=== PATIENT | female | born 1970 ===

== ENCOUNTER 2017-08-11 19:24 | Emergency (ER) | payer SELFPAY ==
[2017-08-11 19:44] VITALS: BP 141/85; RESP 20; TEMP 98.3
[2017-08-11] MEDS ORDERED: DiphenhydrAMINE 50 mg/ml Inj IVP STA (20:19)
--- NOTE | 2017-08-11 20:27 | C.PDOC ---
History Of Present Illness 46 y/o female presents to ED with complaints of rash to bilateral lower extremities since yesterday. Patient describes rash as "burning" with minimal itching and reports today has extended to upper extremities and lower abdomen. Patient states she was once told by PMD she had high allergy levels based on lab work done. Patient denies known allergens, fever, prior history of same rash or any other complaints at this time. Time Seen by Provider: 08/11/17 19:56 Chief Complaint (Nursing): Abnormal Skin Integrity History Per: Patient History/Exam Limitations: no limitations Onset/Duration Of Symptoms: Days Current Symptoms Are (Timing): Still Present Quality Of Symptoms: Itching Past Medical History Vital Signs: Last Vital Signs Temp 98.3 F 08/11/17 19:41 Pulse 74 08/11/17 22:53 Resp 20 08/11/17 22:53 BP 141/85 08/11/17 19:41 Pulse Ox 99 08/12/17 00:01 - Medical History PMH: HTN, Hypothyroidism Denies: Chronic Kidney Disease - [facility] Procedures LAPAROSCOP REMOVE OVARIES/TUBES (02/19/15) LAPAROSCOPIC ROBOTIC ASSISTED PROCEDURE (02/19/15) LAPAROSCOPIC TOTAL ABDOMINAL HYSTERECTOMY (02/19/15) SIMP EXC LYMPH STRUC NEC (02/19/15) Family History: States: Unknown Family Hx - Social History Hx Alcohol Use: No Hx Substance Use: No - Immunization History Hx Tetanus Toxoid Vaccination: Yes Hx Influenza Vaccination: No Hx Pneumococcal Vaccination: No Review Of Systems Constitutional: Negative for: Fever, Chills Respiratory: Negative for: Cough, Shortness of Breath Gastrointestinal: Negative for: Nausea, Vomiting Skin: Positive for: Rash. Negative for: Lesions Neurological: Negative for: Weakness, Numbness Physical Exam - Physical Exam Appears: Non-toxic, No Acute Distress Skin: Warm, Dry, Rash (Petechial rash to bilateral thigh, bilateral upper arms and low abdomen (-)hives (-)vesicular lesions) Head: Atraumatic, Normacephalic Eye(s): bilateral: Normal Inspection, PERRL, EOMI Oral Mucosa: Moist Tongue: Normal Appearing, No Swelling Lips: Normal Appearing, No Swelling, No Lesions, No Erythema Throat: Normal, No Erythema, No Exudate, No Drooling Neck: Supple Chest: Symmetrical Cardiovascular: Rhythm Regular Respiratory: Normal Breath Sounds, No Accessory Muscle Use, No Rales, No Rhonchi , No Wheezing Extremity: Normal ROM, Capillary Refill (<2 seconds) Neurological/Psych: Oriented x3, Normal Speech Gait: Steady ED Course And Treatment - Laboratory Results Result Diagrams: 08/11/17 20:44 08/11/17 20:44 O2 Sat by Pulse Oximetry: 99 (RA) Pulse Ox Interpretation: Normal Progress Note: Pt with Petechial rash- labs ordered and reviewed , results d/w pt. Benadryl and solumedrol IV was ordered. Pt in no acute distress, labs wnl, K + replaced, no platelets abnormalities. Pt advised to follow up with PMD in clinic. Return precautions dicussed and pt does agree with plan Disposition Counseled Patient/Family Regarding: Diagnosis, Need For Followup, Rx Given - Disposition Disposition: HOME/ ROUTINE Disposition Time: 22:31 Condition: STABLE Additional Instructions: Please follow up with PMD Return to ER if moderate pain to extremities, fever, peeling of skin , swelling to lips or worse Prescriptions: DiphenhydrAMINE [Benadryl] 25 mg PO QID #20 cap predniSONE [Prednisone] 40 mg PO DAILY #8 tab Instructions: Acute Rash (ED) Forms: [employer] ([place]) - Clinical Impression Clinical Impression: Rash and nonspecific skin eruption - PA / [employer] / Resident Statement MD/DO has reviewed & agrees with the documentation as recorded. - Scribe Statement The provider has reviewed the documentation as recorded by the Nicole Anderson All medical record entries made by the Nicole were at my direction and personally dictated by me. I have reviewed the chart and agree that the record accurately reflects my personal performance of the history, physical exam, medical decision making, and the department course for this patient. I have also personally directed, reviewed, and agree with the discharge instructions and disposition.
[2017-08-11] MEDS ORDERED: DiphenhydrAMINE 50 mg/ml Inj ONE (20:38)
[2017-08-11 20:50] LABS: BASO # 0.1 K/uL (0.0-0.2); BASO % 0.9 % (0.0-2.0); EOS # 0.1 K/uL (0.0-0.7); EOS % 0.6 % (0.0-4.0); HEMATOCRIT 37.6 % (34.0-47.0); LYMPH % 24.4 % (20.0-40.0); MEAN CELL VOLUME 84.7 fL (81.0-99.0); MEAN CORPUSCULAR HGB CONC 33.1 g/dL (33.0-37.0); MEAN PLATELET VOLUME 8.9 fL (7.2-11.7); MONO # 0.9 K/uL (0.0-0.8); MONO % 7.1 % (0.0-10.0); RED CELL DISTRIBUTION WIDTH 13.7 % (11.5-14.5); WHITE BLOOD COUNT 12.3 K/uL (4.8-10.8)
[2017-08-11 21:07] LABS: ALB/GLOB RATIO 1.1 (1.0-2.1); ALKALINE PHOSPHATASE 116 U/L (38-126); ALT/SGPT 45 U/L (9-52); AST/SGOT 28 U/L (14-36); BILIRUBIN,TOTAL 0.7 mg/dL (0.2-1.3); BLOOD UREA NITROGEN 22 mg/dL (7-17); CALCIUM 8.5 mg/dl (8.6-10.4); CARBON DIOXIDE 30 mmol/L (22-30); CHLORIDE 96 mmol/L (98-107); GFR AFRICAN-AMERICAN > 60; GLUCOSE,RANDOM 104 mg/dL (65-105); POTASSIUM 3.2 mmol/L (3.6-5.2); SODIUM 137 mmol/L (132-148); TOTAL PROTEIN 7.7 g/dL (6.3-8.3)
[2017-08-11] MEDS ORDERED: Potassium Chloride 20 mEq ER Tab PO STA (21:59)
[2017-08-11] MEDS ORDERED: Potassium Chloride 20 mEq ER Tab PO ONE (22:06)
[2017-08-11 22:53] VITALS: PULSE 74
[2017-08-12 00:01] VITALS: O2SAT 99
== END 2017-08-11 22:54 | disposition home or self-care (01) ==
LOC: C.ER 19:24
DX: R21 Rash and other nonspecific skin eruption (principal); E87.6 Hypokalemia
CPT/HCPCS: 80053; 85025; 96365; 96375; 99284; J1200; J2930

== ENCOUNTER 2017-09-26 15:43 | Emergency (ER) | payer OTHER ==
[2017-09-26 15:54] VITALS: BMI 31.4
[2017-09-26 16:02] VITALS: O2SAT 100
[2017-09-26] MEDS ORDERED: Lactated Ringer's 1,000 ML IVB STA (16:28)
[2017-09-26] MEDS ORDERED: Lactated Ringer's 1,000 ML ONE (16:47)
[2017-09-26 16:50] LABS: BASO # 0.2 K/uL (0.0-0.2); EOS % 0.5 % (0.0-4.0); HEMOGLOBIN 13.3 g/dL (11.0-16.0); LYMPH # 2.3 K/uL (1.0-4.3); LYMPH % 29.8 % (20.0-40.0); MEAN CELL VOLUME 85.1 fL (81.0-99.0); MEAN CORPUSCULAR HEMOGLOBIN 28.9 pg (27.0-31.0); MEAN CORPUSCULAR HGB CONC 33.9 g/dL (33.0-37.0); MEAN PLATELET VOLUME 8.7 fL (7.2-11.7); MONO # 0.6 K/uL (0.0-0.8); MONO % 8.1 % (0.0-10.0); NEUT # 4.6 K/uL (1.8-7.0); NEUT % 59.6 % (50.0-75.0); RBC 4.6 Mil/uL (3.80-5.20); RED CELL DISTRIBUTION WIDTH 13.9 % (11.5-14.5); WHITE BLOOD COUNT 7.7 K/uL (4.8-10.8)
[2017-09-26 17:00] LABS: ALBUMIN 3.9 g/dL (3.5-5.0); ALT/SGPT 47 U/L (9-52); AST/SGOT 32 U/L (14-36); BLOOD UREA NITROGEN 19 mg/dL (7-17); CALCIUM 8.6 mg/dl (8.6-10.4); GFR AFRICAN-AMERICAN > 60; GFR NON-AFRICAN AMERICAN 59; MAGNESIUM 1.8 mg/dL (1.6-2.3)
[2017-09-26 17:16] LABS: FREE T4 1.27 ng/dL (0.78-2.19)
--- NOTE | 2017-09-26 17:51 | C.PDOC ---
Time Seen by Provider: 09/26/17 16:19 Chief Complaint (Nursing): Dizziness/Lightheaded History Per: Patient Onset/Duration Of Symptoms: Days (3) Current Symptoms Are (Timing): Still Present Activity At Onset Of Symptoms: Walking Seizure Or Post-ictal Symptoms: None Possible Causative Factor(s): Lightheaded W/Exertion Fall Associated With With Symptoms: No Severity: Moderate Additional History Per: Prior Records - Symptoms Of CVA Recent Head Trauma: No Past Medical History Reviewed: Historical Data, Nursing Documentation, Vital Signs Vital Signs: Last Vital Signs Temp 98.3 F 09/26/17 15:58 Pulse 70 09/26/17 15:58 Resp 18 09/26/17 15:58 BP Pulse Ox 100 09/26/17 17:51 - Medical History PMH: HTN, Hypothyroidism Other Surgeries: Hysterectomy - [facility] Procedures LAPAROSCOP REMOVE OVARIES/TUBES (02/19/15) LAPAROSCOPIC ROBOTIC ASSISTED PROCEDURE (02/19/15) LAPAROSCOPIC TOTAL ABDOMINAL HYSTERECTOMY (02/19/15) SIMP EXC LYMPH STRUC NEC (02/19/15) Family History: States: Unknown Family Hx - Social History Hx Tobacco Use: No Hx Alcohol Use: No Hx Substance Use: No - Immunization History Hx Tetanus Toxoid Vaccination: Yes Hx Influenza Vaccination: No Hx Pneumococcal Vaccination: No Review Of Systems Except As Marked, All Systems Reviewed And Found Negative. Constitutional: Negative for: Fever, Weakness Cardiovascular: Negative for: Chest Pain Respiratory: Negative for: Shortness of Breath Gastrointestinal: Negative for: Vomiting, Abdominal Pain Genitourinary: Negative for: Dysuria Musculoskeletal: Negative for: Neck Pain Skin: Negative for: Rash Neurological: Negative for: Weakness, Numbness, Seizures, Altered Mental Status Physical Exam - Physical Exam Appears: Non-toxic, No Acute Distress Skin: Normal Color, Warm, Dry, No Rash Head: Atraumatic, Normacephalic Eye(s): bilateral: Normal Inspection, PERRL, EOMI Neck: Normal ROM, Supple Cardiovascular: Rhythm Regular Respiratory: Normal Breath Sounds, No Accessory Muscle Use Gastrointestinal/Abdominal: Soft, No Tenderness Back: No CVA Tenderness Extremity: Normal ROM, No Pedal Edema, No Calf Tenderness Neurological/Psych: Oriented x3, Normal Speech, Normal Cognition, No Cerebellar Signs, Normal Motor, Normal Sensation ED Course And Treatment - Laboratory Results Result Diagrams: 09/26/17 16:45 09/26/17 16:45 Lab Interpretation: No Acute Changes O2 Sat by Pulse Oximetry: 100 Pulse Ox Interpretation: Normal Progress Note: Pt is now asymptomatic. Ambulating without any dizziness. Reassessment Condition: Improved Progress - Interventions Interventions:: Observation, Intravenous fluid - Data Reviewed Data Reviewed: Lab, Old records - Patient Status Patient status: Completely improved - Continuity of Care Discussed patient case with:: Patient, ED Nurse - Patient Plan Patient Plan: Discharge, F/U with PCP, Continue present meds Disposition Counseled Patient/Family Regarding: Studies Performed, Diagnosis, Need For Followup, Rx Given - Disposition Referrals: Gisel Hickey MD [Staff Provider] - Disposition: HOME/ ROUTINE Disposition Time: 17:58 Condition: IMPROVED Additional Instructions: Drink plenty of fluids. Follow up with your doctor for further evaluation and treatment. Return to the ER if you develop weakness, numbness, vomiting, trouble walking, talking or seeing, worsening of symptoms or if you have any other concerns. Instructions: Dizziness (ED) Print Language: TELUGU - Clinical Impression Clinical Impression: Dizziness
[2017-09-26 18:32] VITALS: RESP 17
[2017-09-26 18:34] VITALS: BP 151/80; PULSE 64; TEMP 97.4
== END 2017-09-26 18:35 | disposition home or self-care (01) ==
LOC: C.ER 15:43
DX: R42 Dizziness and giddiness (principal)
CPT/HCPCS: 80053; 83735; 84439; 84443; 85025; 96360; 99285; J7120

== ENCOUNTER 2018-11-30 07:11 | Outpatient (CLI) | payer OTHER | END 2018-11-30 07:12 | disposition home or self-care (01) | LOC: C.LAB 07:11 | DX: R80.9 Proteinuria, unspecified (principal); I10 Essential (primary) hypertension ==

== ENCOUNTER → 2018-12-04 | Outpatient (CLI) | payer OTHER | LOC: C.LAB 07:33 | DX: R80.9 Proteinuria, unspecified (principal) ==

== ENCOUNTER 2019-01-09 13:32 | Outpatient (CLI) | payer OTHER | END 2019-01-09 13:33 | disposition home or self-care (01) | LOC: C.MAMMO 13:32 | DX: Z12.39 Encounter for other screening for malignant neoplasm of breast (principal) ==